=== PATIENT | male | born 1955 | race Caucasian/White ===

== ENCOUNTER 2016-11-18 10:17 | Inpatient (IN) | payer OTHER, MEDICAID ==
[~2016-11-18] VITALS: Ht 167.6 cm; Wt 65.2 kg
[~2016-11-18 10:17] MED LIST: ASPI325T32 PO; ATOR20TA38 PO; OMEP20CA16 PO
[2016-11-18] MEDS ORDERED: morphine 4 MG/ML VIAL IV STA (12:32)
[2016-11-18] MEDS ORDERED: BELLADONNA/PHENOBARBITAL TAB PO STA (12:32)
[2016-11-18] MEDS ORDERED: SOD CHLORIDE 0.9% 1,000 ML IV STA (12:32)
[2016-11-18] MEDS ORDERED: ONDANSETRON 4 MG INJ IV STA (12:32)
[2016-11-18] MEDS ORDERED: LIDOCAINE/MYLANTA 40 ML BTL PO STA (12:32)
[2016-11-18 12:48] LABS: ADD SCAN DIFF NO
[2016-11-18 12:54] LABS: BASOPHILS % 0.2 % (0.0-2.0); EOSINOPHILS % 0.1 % (0.0-7.0); HEMOGLOBIN 16.2 g/dl (14.0-18.0); LYMPHOCYTES # 1.1 10^3/ul (0.8-2.9); LYMPHOCYTES % 6.7 % (15.0-51.0); MEAN CORPUSCULAR HEMOGLOBIN 31.1 pg (29.0-33.0); MEAN CORPUSCULAR HGB CONC 35.2 g/dl (32.0-37.0); MEAN CORPUSCULAR VOLUME 88.3 fl (82.0-101.0); MEAN PLATELET VOLUME 9.8 fl (7.4-10.4); MONOCYTE # 0.7 10^3/ul (0.3-0.9); MONOCYTES % 4.1 % (0.0-11.0); NEUTROPHIL # 14.8 10^3/ul (1.6-7.5); NEUTROPHILS % 88.5 % (39.0-77.0); PLATELET COUNT 282 10^3/UL (140-415); RED BLOOD COUNT 5.21 10^6/ul (4.70-6.10); RED CELL DISTRIBUTION WIDTH 11.4 % (11.5-14.5); WHITE BLOOD COUNT 16.8 10^3/ul (4.8-10.8)
[2016-11-18] MEDS ORDERED: DICY10CA60 PO (12:59)
[2016-11-18] MEDS ORDERED: TRAM-40 PO (13:00)
[2016-11-18 13:13] LABS: ALBUMIN 4.2 g/dl (3.3-4.9); CHLORIDE 98 mmol/L (97-110)
[2016-11-18 13:14] LABS: POTASSIUM 3.9 mmol/L (3.5-5.1); SODIUM 139 mmol/L (135-144)
[2016-11-18 13:16] LABS: ALBUMIN/GLOBULIN RATIO 1.35; ALKALINE PHOSPHATASE 150 IU/L (42-121); ANION GAP 16 (8-16); ASPARTATE AMINO TRANSFERASE 181 IU/L (15-46); BILIRUBIN,INDIRECT 0.6 mg/dl (0-1.1); BILIRUBIN,TOTAL 0.6 mg/dl (0.2-1.3); BLOOD UREA NITROGEN 11 mg/dl (7-20); CARBON DIOXIDE 29 mmol/L (21-31); CREATININE 0.68 mg/dl (0.61-1.24); TOTAL PROTEIN 7.3 g/dl (6.1-8.1)
[2016-11-18 13:17] LABS: ALANINE AMINOTRANSFERASE 231 IU/L (13-69); CALCIUM 9.5 mg/dl (8.4-10.2); GLUCOSE 117 mg/dl (70-220)
--- NOTE | 2016-11-18 14:37 | ERA ---
ER Documentation Chief Complaint Date/Time DATE: 11/18/16 TIME: 14:35 Chief Complaint ABDOMINAL PAIN SINCE LAST NIGHT. NO N/V. NO DIARRHEA. HPI 61-year-old man complaining of 1 day of crampy epigastric and upper abdominal pain. He has had similar episodes in the past and has been using omeprazole and dicyclomine as prescribed without relief. He has had upper endoscopy in the past and was diagnosed with gastritis and hiatal hernia. He denies fevers or chills, no vomiting or diarrhea, no headache or blurry vision, no chest pain or shortness of breath. Patient denies melena or blood per rectum, denies weight loss ROS All systems reviewed and are negative except as per history of present illness. Medications Home Meds Reported Medications Tramadol Hcl* (Ultram*) 50 Mg Tablet, 50 MG PO BID Y for PAIN, TAB 11/18/16 Dicyclomine Hcl* (Bentyl*) 10 Mg Capsule, 10 MG PO BID, CAP 11/18/16 Omeprazole* (Omeprazole*) 20 Mg Capsule.dr, 20 MG PO DAILY 03/10/13 Atorvastatin Calcium* (Atorvastatin Calcium*) 20 Mg Tablet, 20 MG PO DAILY 03/10/13 Aspirin (Aspirin) 325 Mg Tablet.dr, 325 MG PO DAILY 03/10/13 Allergies Allergies: Coded Allergies: No Known Drug Allergies (Verified Allergy, Unknown, 11/18/16) PMhx/Soc Gastritis, obesity, hiatal hernia, dyslipidemia History of Surgery: No Anesthesia Reaction: No Hx Neurological Disorder: No Hx Respiratory Disorders: No Hx Cardiac Disorders: Yes Hx Psychiatric Problems: No Hx Miscellaneous Medical Probl: Yes (gastritis) Hx Alcohol Use: No Hx Substance Use: No Hx Tobacco Use: No Smoking Status: Former smoker FmHx Family History: No diabetes Physical Exam Vitals Vital Signs Date Time Temp Pulse Resp B/P Pulse Ox O2 Delivery O2 Flow Rate FiO2 11/18/16 18:12 63 22 146/87 97 Room Air 11/18/16 14:38 67 18 146/84 97 Room Air 11/18/16 10:19 98.5 62 21 180/81 98 Physical Exam GENERAL: Well-developed, well-nourished, well-hydrated, in no apparent distress , looks nontoxic in appearance HEENT: Moist mucous membranes, pink conjunctiva, no cervical spine tenderness or step-off deformities, no goiter, no jaundice or icterus, extraocular movements intact without pain. No submandibular induration, and no pharyngeal erythema NEURO: Alert and oriented 3, cranial nerves II through XII intact bilaterally, pupils equal round reactive to light, no focal deficits or facial asymmetry, sensation intact distally Strength 5/5 in upper and lower extremities bilaterally CARDIAC: Regular rate and rhythm, no murmurs rubs or gallops LUNGS: Clear bilaterally no wheezing crackles or stridor ABDOMEN: Soft, mild epigastric tenderness, positive voluntary guarding over the epigastrium, no rigidity, no rebound, no psoas sign no obturator sign. Normoactive bowel sounds SKIN: Warm and dry to touch, no abrasions, contusions, or hematomas, no lacerations, no ecchymosis, no target lesions, and without ulcers EXTREMITIES: No clubbing cyanosis or edema, calves are bilaterally symmetrical, no Homans sign, no popliteal cord sign. Distal pulses equal and bilateral PSYCH: Normal affect without agitation or irritability Result Diagram: 11/18/16 1240 11/18/16 1240 Results 24 hrs Laboratory Tests Test 11/18/16 12:40 Alanine Aminotransferase (ALT/SGPT) 231IU/L Albumin 4.2g/dl Albumin/Globulin Ratio 1.35 Alkaline Phosphatase 150IU/L Anion Gap 16 Aspartate Amino Transf (AST/SGOT) 181IU/L Basophils # 0.010^3/ul Basophils % 0.2% Blood Urea Nitrogen 11mg/dl Calcium Level 9.5mg/dl Carbon Dioxide Level 29mmol/L Chloride Level 98mmol/L Creatinine 0.68mg/dl Direct Bilirubin 0.00mg/dl Eosinophils # 0.010^3/ul Eosinophils % 0.1% Globulin 3.10g/dl Glucose Level 117mg/dl Hematocrit 46.0% Hemoglobin 16.2g/dl Indirect Bilirubin 0.6mg/dl Lipase 39839P/L Lymphocytes # 1.110^3/ul Lymphocytes % 6.7% Mean Corpuscular Hemoglobin 31.1pg Mean Corpuscular Hemoglobin Concent 35.2g/dl Mean Corpuscular Volume 88.3fl Mean Platelet Volume 9.8fl Monocytes # 0.710^3/ul Monocytes % 4.1% Neutrophils # 14.810^3/ul Neutrophils % 88.5% Nucleated Red Blood Cells # 0.010^3/ul Nucleated Red Blood Cells % 0.0/100WBC Platelet Count 76214^3/UL Potassium Level 3.9mmol/L Red Blood Count 5.2110^6/ul Red Cell Distribution Width 11.4% Sodium Level 139mmol/L Total Bilirubin 0.6mg/dl Total Protein 7.3g/dl Troponin I < 0.010ng/ml White Blood Count 16.810^3/ul Current Medications Medications (Trade) Dose Ordered Sig/[place] Route PRN Reason Start Time Stop Time Status Last Admin Dose Admin Sodium Chloride (NS) 1,000 ml @ 1,000 mls/hr Q1H STAT IV 11/18/16 12:32 11/18/16 13:31 DC 11/18/16 12:45 Morphine Sulfate (morphine) 4 mg ONCE STAT IV 11/18/16 12:32 11/18/16 12:33 DC 11/18/16 12:45 Ondansetron HCl (Zofran Inj) 4 mg ONCE STAT IV 11/18/16 12:32 11/18/16 12:33 DC 11/18/16 12:44 Miscellaneous Medication (Gi Cocktail (2)) 40 ml ONCE STAT PO 11/18/16 12:32 11/18/16 12:33 DC 11/18/16 12:44 Belladonna/ Phenobarbital () 2 tab ONCE STAT PO 11/18/16 12:32 11/18/16 12:33 DC 11/18/16 12:45 Ketorolac Tromethamine 15 mg 15 mg ONCE STAT IV 11/18/16 15:04 11/18/16 15:16 DC 11/18/16 15:19 Sodium Chloride (NS) 1,000 ml @ 1,000 mls/hr Q1H ONCE IV 11/18/16 17:00 11/18/16 17:59 DC 11/18/16 17:00 Hydromorphone HCl 1 mg 1 mg ONCE STAT IV 11/18/16 16:49 11/18/16 16:50 DC 11/18/16 16:59 Piperacillin Sod/ Tazobactam Sod 100 ml @ 200 mls/hr ONCE ONCE IVPB 11/18/16 17:00 11/18/16 17:29 DC 11/18/16 17:19 Dextrose/Sodium Chloride (D5-1/2ns) 1,000 ml @ 80 mls/hr [id number] IV 11/18/16 17:39 IV Flush (NS 3 ml) 3 ml PER PROTOCOL IV 11/18/16 18:00 Ondansetron HCl (Zofran Inj) 4 mg Q6H PRN IV NAUSEA AND/OR VOMITING 11/18/16 18:00 Acetaminophen (Tylenol Tab) 650 mg Q6H PRN PO PAIN LEVEL 1-3 OR FEVER 11/18/16 18:00 Acetaminophen (Tylenol Supp) 650 mg Q6H PRN [place] PAIN LEVEL 1-3 OR FEVER 11/18/16 18:00 Morphine Sulfate (morphine) 2 mg Q4H PRN IV SEVERE PAIN LEVEL 7-10 11/18/16 18:00 Docusate Sodium (Colace) 100 mg Q12H PRN PO CONSTIPATION 11/18/16 18:00 Magnesium Hydroxide (Milk Of Mag) 30 ml DAILY PRN PO CONSTIPATION 11/18/16 18:00 Pantoprazole 40 mg 40 mg DAILY@06 IV 11/19/16 06:00 Ceftriaxone Sodium (Rocephin) 50 ml @ 100 mls/hr Q24H IVPB 11/18/16 18:30 Procedures/MDM IV line was established patient was placed on automatic pinsetter mechanic rhythm strip revealed a sinus rhythm at about 60 bpm with upright P and T waves. EKG performed, read by me: 64 bpm, normal sinus rhythm, normal axis, no acute ST segment changes, narrow QRS complex, with good R-wave progression in precordial leads. CT scan of the abdomen and pelvis was performed revealing inflammatory changes around the pancreas. Please refer to radiologist dictation for full report. CBC reveals a leukocytosis of 17, electrolytes were unremarkable, liver function tests revealed transaminitis and a lipase of over 20,000. Troponin was negative. I administered 2 L normal saline intravenously, morphine 4 mg IV, Zofran 4 mg IV , GI cocktail 50 cc p.o., Toradol 15 mg IV, later hydromorphone 1 mg IV for continued epigastric pain. I also administered Zosyn 3.375 g IV empirically. Repeat abdominal examination was performed by me after medications were administered and after admission. Belly remains generally soft although he does has continued voluntary guarding over the epigastrium without rigidity or rebound. No signs of acute peritonitis. I spoke to his miner operator Dr. Hurley regarding the patient's presentation and symptomatology, and he recommended emergent MRCP which I ordered. He agreed to consult the patient emergently. I also spoke to his PMD Dr. Chan for admission. Departure Diagnosis: Primary Impression: Abdominal pain Qualified Code: R10.13 - Epigastric pain Additional Impression: Gallstone pancreatitis Condition: JUANJO Kidd MD Nov 18, 2016 14:37
[2016-11-18] MEDS ORDERED: KETOROLAC 15 MG INJ IV STA (15:04)
--- NOTE | 2016-11-18 15:09 | RADRPT ---
PROCEDURE: CT Abdomen and Pelvis without contrast. CLINICAL INDICATION: Abdominal pain TECHNIQUE: CT scan of the abdomen and pelvis without contrast was performed on a multidetector hig h-resolution CT scanner. The patient was scanned without intravenous contrast. Coronal and sagittal reformatted images were obtained from the axial source images. Images were reviewed on a high-resol [employer] PACS workstation. The total exam CTDI equals 6.59 mGy and the total exam DLP equals 379.66 mGy -cm. One or more of the following dose reduction techniques were used: Automated exposure control. Adjustment of the mA and/or kV according to patient size. Use of iterative reconstruction technique. COMPARISON: None FINDINGS: CT abdomen: The lung bases are remarkable for tubular bronchiectasis in the right lower lobe with mucous pluggin g and bronchial wall thickening. There is significant air trapping in the right lower lobe.. The h eart size is normal, without pericardial thickening or effusion. There is fatty infiltration of the liver. The spleen is normal in size and homogeneous in density. The stomach is partially collapse d, but is grossly unremarkable. There are mild peripancreatic fatty stranding. Trace fluid is seen along the left pararenal fascia. Mild inflammatory changes are also seen around the distal duodenum. The gallbladder and biliary tree are unremarkable and there is no evidence for biliary dilatation. The adrenal glands are symmetric and normal. The kidneys are symmetrically unremarkable as well. No renal calculus or obstructive uropathy or mass lesion is seen. The aorta is of normal caliber. There is no retroperitoneal lymphadenopathy. The kenyon hepatis toya on is clear. The bowel and mesentery, as visualized, are equally unremarkable. There is a moderate hiatal hernia. CT pelvis: The small bowel loops situated within the pelvis are unremarkable. The pelvic organs are normal. T he pelvic sidewalls and inguinal regions are clear. The sigmoid colon and rectum are unremarkable. No mass, lymphadenopathy, or free fluid is seen. No acute inflammation is seen. The surrounding o sseous structures are remarkable for mild degenerative spondylosis of the spine. No osteolytic or o steoblastic lesion is detected. IMPRESSION: 1. Mild inflammatory changes around the pancreas and the distal duodenum suggestive of acute pancre atitis, and possibly duodenitis. No peripancreatic organized fluid collection. 2. Fatty liver. 3. Moderate hiatal hernia. 4. Tubular bronchiectasis with bronchial wall thickening and mucus plugging in the right lower lobe . RPTAT: BB .Dang Noel MD, MD Date Time Electronically viewed and signed by .Dang oNel MD, MD on 11/18/2016 15:09 .O/
[2016-11-18 15:18] LABS: TROPONIN-I < 0.010 ng/ml (0.00-0.12)
[2016-11-18] MEDS ORDERED: HYDROmorphONE 1 MG/ML SYG IV STA (16:49)
[2016-11-18] MEDS ORDERED: PIPER-TAZO 3.375 GM IV (PMX) 100 ML IVPB ONE (17:00)
[2016-11-18] MEDS ORDERED: SOD CHLORIDE 0.9% 1,000 ML IV ONE (17:00)
[2016-11-18] MEDS ORDERED: ONDANSETRON 4 MG INJ IV PRN (18:00)
[2016-11-18] MEDS ORDERED: MAGNESIUM HYDROXIDE 30ML CUP PO PRN (18:00)
[2016-11-18] MEDS ORDERED: NACL 0.9% 3 ML SYG IV SCH (18:00)
[2016-11-18] MEDS ORDERED: DOCUSATE SODIUM 100 MG CAP PO PRN (18:00)
[2016-11-18] MEDS ORDERED: ACETAMINOPHEN 650 MG SUPP PR PRN (18:00)
[2016-11-18] MEDS ORDERED: morphine 2 MG INJ IV PRN (18:00)
--- NOTE | 2016-11-18 18:01 | RADRPT ---
PROCEDURE: US Abdomen (right upper quadrant). CLINICAL INDICATION: Right upper quadrant abdomen pain. TECHNIQUE: Multiple real-time longitudinal and transverse images of the right upper quadrant of th e abdomen were acquired utilizing a curved array transducer. Images were reviewed on a high-resoluti on PACS workstation. COMPARISON: None FINDINGS: The liver is normal in size and echogenicity. There is no focal hepatic lesion. Gallstones are present in the gallbladder neck. There is no gallbladder wall thickening or fluid ar ound the gallbladder. The bile ducts are normal with the common bile duct measuring 4.3 mm in diameter. The pancreas is not visualized due to overlying bowel gas. No free fluid is present. The right kidney measures 10.6 cm. There is normal echogenicity of the right kidney. There is no perinephric fluid collection. No hydronephrosis, mass, or calculus is seen. IMPRESSION: 1. Gallstones in the gallbladder. No evidence of cholecystitis. 2. Pancreas not visualized. 3. Otherwise unremarkable study. RPTAT: QQ .Driss Dumont MD, MD Date Time Electronically viewed and signed by .Driss Dumont MD, on 11/18/2016 18:01 .R/
[2016-11-18 20:20] VITALS: BP 141/76; PULSE 71; RESP 18; Ht 167.6 cm; Wt 65.2 kg
[2016-11-18] MEDS: DEXTROSE 5%-0.45% NACL 1,000 ML IV SCH (22:21)
[2016-11-18] MEDS: CEFTRIAXONE 1 GM/50 ML (PMX) 50 ML IVPB SCH (22:22)
--- NOTE | 2016-11-18 23:25 | QN ---
Documentation Comment [id number] KIMMIE VIZCAINO MD Nov 18, 2016 23:25
--- NOTE | 2016-11-19 00:11 | HP ---
DATE OF ADMISSION: 11/18/2016 HISTORY OF PRESENT ILLNESS: The patient presented to the ER complaining of abdominal pain. Previously patient has a history of hyperlipidemia, GERD. The patient now presents with abdominal pain. The patient was seen in the ER. Family is at bedside. The patient had laboratory data done, showed WBC 16.8, hematocrit 46, platelet count of 282. AST 181, ALT 231, alkaline phosphatase 150, lipase The patient had abdominopelvic CT scan done, shows mild inflammatory changes, moderate hiatus hernia, bronchiectasis with bronchial wall thickening and mucus plugging in the right lower lobe. The patient had gallbladder ultrasound, shows gallstone in the gallbladder, pancreas not visualized. The patient will be undergoing MRCP. PAST MEDICAL HISTORY: Positive for dyslipidemia. ALLERGY HISTORY: NEGATIVE. FAMILY HISTORY: Negative. SOCIAL HISTORY: Negative. MEDICATION HISTORY: The patient is on: 1. Aspirin. 2. Lipitor. 3. Bentyl. 4. Omeprazole. 5. Tramadol. REVIEW OF SYSTEMS: HEENT: Unremarkable. RESPIRATORY: Unremarkable. CARDIOVASCULAR: Unremarkable. ABDOMEN: Complaining of nausea and vomiting, abdominal pain. EXTREMITIES: Unremarkable. CENTRAL NERVOUS SYSTEM: Unremarkable. PHYSICAL EXAMINATION: GENERAL: Obese, overweight male, awake, alert. VITAL SIGNS: Pulse , blood pressure 146/57. HEENT: Head is atraumatic, normocephalic. Pupils equal, reactive to light. NECK: Supple. No JVD. LUNGS: Clear. CARDIOVASCULAR: S1, S2 normal. ABDOMEN: Obese. Bowel sounds present. Mild tenderness noted. EXTREMITIES: There is no cyanosis, clubbing, edema. CENTRAL NERVOUS SYSTEM: The patient is awake, alert. No focal deficit. LABORATORY DATA: As mentioned above. IMPRESSION: 1. Gallstone pancreatitis. 2. Leukocytosis. 3. History of dyslipidemia. PLAN: Keep him n.p.o., IV fluid, antibiotic, pain medication, GI consultation. Orders were done. Dictated By: KIMMIE GONZALEZ/CATRINA Conf#: [id number] DID#: [id number] MTDD
[2016-11-19] MEDS: DEXTROSE 5%-0.45% NACL 1,000 ML IV SCH ×6 (06:09→22:00)
[2016-11-19] MEDS: PANTOPRAZOLE 40 MG INJ IV SCH (06:21)
[2016-11-19 07:30] VITALS: BP 147/74; RESP 18
--- NOTE | 2016-11-19 08:24 | RADRPT ---
PROCEDURE: XR orbits. CLINICAL INDICATION: Oral pain. History of metallic orbital foreign body. TECHNIQUE: 4 views. Frontal, Cheney, right lateral, left lateral. COMPARISON: No prior studies available for comparison. FINDINGS: There is no fracture. There is no lytic or blastic lesion. The visualized orbits are normal. Ther e is no radiopaque foreign body. IMPRESSION: 1. Normal images of the orbits. 2. No radiopaque foreign body. RPTAT: QQ .Driss Dumont MD, MD Date Time Electronically viewed and signed by .Driss Dumont MD, MD on 11/19/2016 08:23 .R/
--- NOTE | 2016-11-19 09:56 | RADRPT ---
PROCEDURE: MRCP. CLINICAL INDICATION: Abdominal pain. Pancreatitis. TECHNIQUE: MRCP was performed on the a high-resolution, high Tere field strength scanner. Patien t was examined without contrast. 3-D coronal rotating MIP images of the biliary tree are available for review. COMPARISON: CT abdomen and pelvis 11/18/2016 FINDINGS: Multiple tiny gallstones are seen layering in the gallbladder. There is mild diffuse gallbladder wa ll thickening with no significant gallbladder distension or pericholecystic inflammatory changes. Th e biliary tree is not dilated. No intrahepatic nor extrahepatic biliary dilatation is present. No f illing defect or choledocholithiasis is seen. There is no stricture or obstruction. The pancreatic d uct, as visualized, is equally unremarkable. There is fatty liver. Mild inflammatory changes are ag ain seen around the pancreas with no organized peripancreatic fluid collection. Sub centimeter corti jayla cysts are seen in the bilateral kidneys. IMPRESSION: 1. Multiple tiny gallstones layering in the gallbladder. No distension of the gallbladder with mil d diffuse wall thickening which could be reactive. No significant pericholecystic inflammatory escamilla ges. 2. No biliary ductal dilatation. No choledocholithiasis. 3. Mild inflammatory changes around the pancreas without organized fluid collection. 4. Moderate hiatal hernia. 5. Fatty liver. RPTAT: BB .Dang Noel MD, Date Time Electronically viewed and signed by .Dang Noel MD, on 11/19/2016 09:56 .O/
--- NOTE | 2016-11-19 11:24 | CONS ---
DATE OF ADMISSION: 11/18/2016 DATE OF CONSULTATION: TYPE OF CONSULTATION: Gastroenterology HISTORY OF PRESENT ILLNESS: The patient is a 61-year-old male who came to the emergency room compla ining of epigastric pain. The pain was radiating to the back. 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 The patient's lipase was 20,000 in the ER and LFTs were abnormal. Sonogram showed gallstones but no dilatation of the biliary system. CAT scan also confirms pancreatitis; however, he had some mucus plugging and bronchiectasis of the right lobe. PAST MEDICAL HISTORY: Positive for dyslipidemia. ALLERGIES: Negative. FAMILY HISTORY: Negative. SOCIAL HISTORY: Negative. MEDICATIONS: He is on: 1. Aspirin. 2. Lipitor. 3. . 4. Omeprazole. 5. Tramadol. REVIEW OF SYSTEMS: Negative. PHYSICAL EXAMINATION GENERAL: Well-built, nourished, not in distress. VITAL SIGNS: Stable. CARDIOVASCULAR: No murmur, gallop or click. LUNGS: Clear. ABDOMEN: Benign. EXTREMITIES: No edema. CENTRAL NERVOUS SYSTEM: Grossly within normal limits. LABORATORY DATA: SGOT and SGPT 181/231, alkaline phosphatase is 250, lipase was 20,000. WBC 16,000 . MRCP showed multiple bile duct stones but no dilatation of the biliary system. There was mild in flammation of the pancreas. IMPRESSION: 1. Biliary pancreatitis. 2. Lipid abnormality. 2. Mild leukocytosis. PLAN: At this point, is to continue antibiotic. Will get a surgical consult, monitor amylase, lipa se closely n.p.o., IV fluids, pain management and also I will send for a lipid study. Dictated By: FRANSISCA HERNANDEZ MD PJ/NTS Conf#: [id number] DID#: [id number] CC: KIMMIE VIZCAINO MD;*EndCC*
[2016-11-19 14:09] LABS: ADD SCAN DIFF NO
[2016-11-19 14:11] LABS: BASOPHILS % 0.1 % (0.0-2.0); EOSINOPHILS % 0.2 % (0.0-7.0); HEMATOCRIT 42.7 % (42.0-52.0); HEMOGLOBIN 14.6 g/dl (14.0-18.0); LYMPHOCYTES # 1.2 10^3/ul (0.8-2.9); MEAN CORPUSCULAR HEMOGLOBIN 30.9 pg (29.0-33.0); MEAN CORPUSCULAR HGB CONC 34.2 g/dl (32.0-37.0); MEAN CORPUSCULAR VOLUME 90.5 fl (82.0-101.0); MEAN PLATELET VOLUME 10.1 fl (7.4-10.4); MONOCYTE # 0.7 10^3/ul (0.3-0.9); MONOCYTES % 5.3 % (0.0-11.0); NEUTROPHIL # 11.7 10^3/ul (1.6-7.5); PLATELET COUNT 239 10^3/UL (140-415); RED BLOOD COUNT 4.72 10^6/ul (4.70-6.10); RED CELL DISTRIBUTION WIDTH 11.7 % (11.5-14.5); WHITE BLOOD COUNT 13.8 10^3/ul (4.8-10.8)
[2016-11-19 14:23] LABS: ALBUMIN 3.6 g/dl (3.3-4.9)
[2016-11-19 14:24] LABS: POTASSIUM 3.7 mmol/L (3.5-5.1)
[2016-11-19 14:26] LABS: ALBUMIN/GLOBULIN RATIO 0.9; BILIRUBIN,INDIRECT 0.4 mg/dl (0-1.1); BILIRUBIN,TOTAL 0.4 mg/dl (0.2-1.3); CREATININE 0.67 mg/dl (0.61-1.24); TOTAL PROTEIN 7.6 g/dl (6.1-8.1)
[2016-11-19 14:27] LABS: CALCIUM 9.2 mg/dl (8.4-10.2); CHOL/HDL RATIO 3.2 RATIO
[2016-11-19] MEDS: CEFTRIAXONE 1 GM/50 ML (PMX) 50 ML IVPB SCH (19:46)
[2016-11-19 19:52] VITALS: BP 111/58; RESP 16
--- NOTE | 2016-11-19 22:41 | PN ---
Date/Time of Note Date/Time of Note DATE: 11/19/16 TIME: 22:40 Assessment/Plan VTE Prophylaxis VTE Prophylaxis Intervention: other Lines/Catheters IV Catheter Type (from Nrs): Peripheral IV Assessment/Plan Chief Complaint/Hosp Course IMPRESSION: 1. Gallstone pancreatitis. 2. Leukocytosis. 3. History of dyslipidemia. 4 abn lft [address] morris called antibiotic Problems: Subjective 24 Hr Interval Summary Cardiovascular: no complaints Gastrointestinal: No diarrhea, No pain, No vomiting Exam/Review of Systems Vital Signs Vitals Vital Signs Date Time Temp Pulse Resp B/P Pulse Ox O2 Delivery O2 Flow Rate FiO2 11/19/16 19:52 97.5 75 16 111/58 95 11/19/16 07:30 Room Air Intake and Output 11/18/16 11/18/16 11/19/16 14:59 22:59 06:59 Intake Total 1250 ml Balance 1250 ml Exam Neck: supple Respiratory: clear to auscultation Cardiovascular: regular rate and rhythm Gastrointestinal: soft Musculoskeletal: nl extremities to inspection Extremities: normal pulses Results Result Diagram: 11/19/16 1400 11/19/16 1400 Results 24 hrs Laboratory Tests Test 11/19/16 14:00 Alanine Aminotransferase (ALT/SGPT) 181 H Albumin 3.6 Albumin/Globulin Ratio 0.90 Alkaline Phosphatase 126 H Amylase Level 917 H Anion Gap 13 Aspartate Amino Transf (AST/SGOT) 79 #H Basophils # 0.0 Basophils % 0.1 Blood Urea Nitrogen 7 Calcium Level 9.2 Carbon Dioxide Level 29 Chloride Level 102 Cholesterol Level 180 Cholesterol/HDL Ratio 3.2 Creatinine 0.67 Direct Bilirubin 0.00 Eosinophils # 0.0 Eosinophils % 0.2 Globulin 4.00 H Glucose Level 120 HDL Cholesterol 55 Hematocrit 42.7 Hemoglobin 14.6 Indirect Bilirubin 0.4 LDL Cholesterol, Calculated 108 Lipase 1818 H Lymphocytes # 1.2 Lymphocytes % 9.0 L Mean Corpuscular Hemoglobin 30.9 Mean Corpuscular Hemoglobin Concent 34.2 Mean Corpuscular Volume 90.5 Mean Platelet Volume 10.1 Monocytes # 0.7 Monocytes % 5.3 Neutrophils # 11.7 H Neutrophils % 85.0 H Nucleated Red Blood Cells # 0.0 Nucleated Red Blood Cells % 0.0 Platelet Count 239 Potassium Level 3.7 Red Blood Count 4.72 Red Cell Distribution Width 11.7 Sodium Level 140 Total Bilirubin 0.4 Total Protein 7.6 Triglycerides Level 87 White Blood Count 13.8 H Medications Medications Current Medications Dextrose/Sodium Chloride (D5-1/2ns) 1,000 ml @ 125 mls/hr Q8H IV Last administered on 11/19/16 21:28; Admin Dose 125 MLS/HR; Start 11/18/16 at 17:39 Ondansetron HCl (Zofran Inj) 4 mg Q6H PRN IV NAUSEA AND/OR VOMITING; Start at 18:00 Acetaminophen (Tylenol Tab) 650 mg Q6H PRN PO PAIN LEVEL 1-3 OR FEVER; Start at 18:00 Acetaminophen (Tylenol Supp) 650 mg Q6H PRN [place] PAIN LEVEL 1-3 OR FEVER; Start 11/18/16 at 18:00 Morphine Sulfate (morphine) 2 mg Q4H PRN IV SEVERE PAIN LEVEL 7-10; Start 11/18 at 18:00 Docusate Sodium (Colace) 100 mg Q12H PRN PO CONSTIPATION; Start 11/18/16 at 18: 00 Magnesium Hydroxide (Milk Of Mag) 30 ml DAILY PRN PO CONSTIPATION; Start at 18:00 Pantoprazole 40 mg 40 mg DAILY@06 IV Last administered on 11/19/16 06:21; Admin Dose 40 MG; Start 11/19/16 at 06:00 Ceftriaxone Sodium (Rocephin) 50 ml @ 100 mls/hr Q24H IVPB Last administered on 11/19/16 19:46; Admin Dose 100 MLS/HR; Start 11/18/16 at 18:30 KIMMIE VIZCAINO MD Nov 19, 2016 22:41
--- NOTE | 2016-11-20 01:11 | CONS ---
DATE OF ADMISSION: 11/18/2016 DATE OF CONSULTATION: 11/19/2016 TYPE OF CONSULTATION: Surgical. REFERRING PHYSICIAN: Dr. Denny Chan OTHER PHYSICIANS INVOLVED: Dr. Ra Hurley CHIEF COMPLAINT: 1. Abdominal pain. 2. Gallstones. 3. Pancreatitis. 4. Leukocytosis. 5. Transaminitis. HISTORY OF PRESENT ILLNESS: Mr. Carmelo Lee is a 61-year-old male who presents with epigastr ic abdominal pain for the past 2 days with associated nausea but no vomiting. No fevers or chills. No chest pain or shortness of breath. No radiation of pain. No dysuria. No trauma or sick contac ts. No cough. No seizure. No blood per mouth or rectum. Pain is sharp, not associated with any s pecific factors. In the emergency room, he was found to have leukocytosis with transaminitis and elevated lipase. MR CP is obtained and shows gallstones but no inflammatory changes. The patient was admitted, and surg ical consult is obtained for further evaluation and treatment. PAST MEDICAL HISTORY: 1. Dyslipidemia. 2. Pancreatitis. 3. Transaminitis. 4. Gallstones. 5. Fatty liver. 6. Moderate hiatal hernia. 7. Gastritis. 8. History of metal in eye secondary to grinding metal 30 years ago. PAST SURGICAL HISTORY: Removal of metal from eye 30 years ago. MEDICATIONS: As per MAR. ALLERGIES: NONE. SOCIAL HISTORY: Denies recreational drugs. Social ETOH. Quit 4 cigarettes per day years ago. Mar ried with children. FAMILY HISTORY: Noncontributory. REVIEW OF SYSTEMS: Twelve-point review of systems negative unless addressed in HPI. No weight escamilla ges. PHYSICAL EXAMINATION: VITAL SIGNS: Temperature is 98.2, pulse 70s, blood pressure 147/74, saturating 97% on room air. GENERAL: No acute distress. Comfortable, pleasant. HEENT: Pupils equal, reactive. No scleral icterus. Mucous membranes are moist. NECK: Supple. No JVD. No crepitus. PULMONARY: Normal respiratory effort. No wheezing. CARDIAC: S1, S2 present. ABDOMEN: Soft, minimally tender in epigastric region. No rebound, no guarding, not rigid. EXTREMITIES: No edema. VASCULAR: Capillary refill is less than 2 seconds. NEUROLOGIC: Alert, oriented, moves all 4 extremities grossly. LABORATORY AND RADIOGRAPHIC: As per chart and HPI. ASSESSMENT AND PLAN: Ms. Carmelo Lee is a 61-year-old male. 1. Abdominal pain secondary to pancreatitis secondary to gallstones. Continue judicious fluid judit gement and supportive care. Will await resolution and improvement in pancreatitis. Recommended stephanie gical removal of gallbladder when pancreatitis has resolved. The patient and family are in agreemen t. 2. Leukocytosis secondary to systemic inflammatory response syndrome. Continue close monitoring. The patient is already on antibiotics. 3. Transaminitis. Possibly secondary to passed stone. Continue close monitoring and treatment as above. May benefit from intraoperative cholangiogram. 4. Dyslipidemia. Recommend medical optimization and nutrition optimization. 5. History of gastritis. Continue PPI and encourage nutrition and lifestyle optimization. 6. Small hiatal hernia. Will monitor. 7. Fatty liver. Encouraged diet optimization. Consider liver biopsy if proceeds with cholecystect domi. Thank you very much for consulting me in this patient's care. Dictated By: GGAAN FARRIS/CATRINA Conf#: [id number] DID#: [id number]
[2016-11-20 05:42] LABS: ADD SCAN DIFF NO
[2016-11-20] MEDS: PANTOPRAZOLE 40 MG INJ IV SCH (05:46)
[2016-11-20] MEDS: DEXTROSE 5%-0.45% NACL 1,000 ML IV SCH ×5 (05:46→23:08)
[2016-11-20 06:00] LABS: BASOPHILS % 0.2 % (0.0-2.0); EOSINOPHILS # 0.1 10^3/ul (0.0-0.5); HEMATOCRIT 41.1 % (42.0-52.0); HEMOGLOBIN 13.9 g/dl (14.0-18.0); LYMPHOCYTES # 1.3 10^3/ul (0.8-2.9); LYMPHOCYTES % 11.5 % (15.0-51.0); MEAN CORPUSCULAR HGB CONC 33.8 g/dl (32.0-37.0); MEAN CORPUSCULAR VOLUME 91.7 fl (82.0-101.0); MEAN PLATELET VOLUME 10.1 fl (7.4-10.4); MONOCYTES % 8.8 % (0.0-11.0); NEUTROPHILS % 78.1 % (39.0-77.0); PLATELET COUNT 233 10^3/UL (140-415); RED BLOOD COUNT 4.48 10^6/ul (4.70-6.10); RED CELL DISTRIBUTION WIDTH 11.5 % (11.5-14.5); WHITE BLOOD COUNT 11.5 10^3/ul (4.8-10.8)
[2016-11-20 06:02] LABS: ALBUMIN 3.4 g/dl (3.3-4.9); POTASSIUM 3.8 mmol/L (3.5-5.1)
[2016-11-20 06:04] LABS: ALBUMIN/GLOBULIN RATIO 0.94; BILIRUBIN,INDIRECT 0.4 mg/dl (0-1.1); BILIRUBIN,TOTAL 0.4 mg/dl (0.2-1.3); CREATININE 0.84 mg/dl (0.61-1.24)
[2016-11-20 06:05] LABS: CALCIUM 9.1 mg/dl (8.4-10.2)
[2016-11-20 07:31] VITALS: BP 99/57; RESP 18
[2016-11-20 07:39] VITALS: BP 114/66; RESP 18
--- NOTE | 2016-11-20 17:50 | CONS ---
Date/Time of Note Date/Time of Note DATE: 11/20/16 TIME: 17:48 Assessment/Plan Assessment/Plan Additional Assessment/Plan IMPRESSION: 1. Biliary pancreatitis. 2. Lipid abnormality. 2. Mild leukocytosis. 4.gallstone 5.fatty liver Plan surgery tomorrow,discussed with Dr Blanc continue present care Consultation Date/Type/Reason Admit Date/Time Nov 18, 2016 at 17:27 Initial Consult Date 24 HR Interval Summary Free Text/Dictation no abdominal pain Constitutional: improved, no complaints Exam/Review of Systems Vital Signs Vitals Vital Signs Date Time Temp Pulse Resp B/P Pulse Ox O2 Delivery O2 Flow Rate FiO2 11/20/16 07:39 97.7 71 18 114/66 97 11/19/16 07:30 Room Air Intake and Output 11/19/16 11/19/16 11/20/16 15:00 23:00 07:00 Intake Total 600 ml 1050 ml 1000 ml Balance 600 ml 1050 ml 1000 ml Exam Constitutional: alert, oriented, well developed Psych: nl mood/affect, no complaints Head: atraumatic, normocephalic Eyes: EOMI, PERRL, nl conjunctiva, nl lids, nl sclera ENMT: nl external ears & nose, nl lips & teeth, nl nasal mucosa & septum Neck: non-tender, supple Respiratory: clear to auscultation, normal air movement Cardiovascular: nl pulses, regular rate and rhythm Gastrointestinal: nl liver, spleen, non-tender, soft Musculoskeletal: nl extremities to inspection, nl gait and stance Extremities: normal pulses Neurological: MOBILE ENGINEER II-XII intact, nl mental status, nl speech, nl strength Skin: nl turgor, No rash or lesions Lymph: nl lymph nodes Results Result Diagram: 11/20/16 0510 11/20/16 0510 Results 24 hrs Laboratory Tests Test 11/20/16 05:10 Alanine Aminotransferase (ALT/SGPT) 155 H Albumin 3.4 Albumin/Globulin Ratio 0.94 Alkaline Phosphatase 134 H Anion Gap 14 Aspartate Amino Transf (AST/SGOT) 78 H Basophils # 0.0 Basophils % 0.2 Blood Urea Nitrogen 7 Calcium Level 9.1 Carbon Dioxide Level 31 Chloride Level 101 Creatinine 0.84 Direct Bilirubin 0.00 Eosinophils # 0.1 Eosinophils % 1.0 Globulin 3.60 H Glucose Level 115 Hematocrit 41.1 L Hemoglobin 13.9 L Indirect Bilirubin 0.4 Lipase 427 H Lymphocytes # 1.3 Lymphocytes % 11.5 L Mean Corpuscular Hemoglobin 31.0 Mean Corpuscular Hemoglobin Concent 33.8 Mean Corpuscular Volume 91.7 Mean Platelet Volume 10.1 Monocytes # 1.0 H Monocytes % 8.8 Neutrophils # 9.0 H Neutrophils % 78.1 H Nucleated Red Blood Cells # 0.0 Nucleated Red Blood Cells % 0.0 Platelet Count 233 Potassium Level 3.8 Red Blood Count 4.48 L Red Cell Distribution Width 11.5 Sodium Level 142 Total Bilirubin 0.4 Total Protein 7.0 White Blood Count 11.5 H Medications Medications Current Medications Dextrose/Sodium Chloride (D5-1/2ns) 1,000 ml @ 125 mls/hr Q8H IV Last administered on 11/20/16 16:34; Admin Dose 125 MLS/HR; Start 11/18/16 at 17:39 Ondansetron HCl (Zofran Inj) 4 mg Q6H PRN IV NAUSEA AND/OR VOMITING; Start at 18:00 Acetaminophen (Tylenol Tab) 650 mg Q6H PRN PO PAIN LEVEL 1-3 OR FEVER; Start at 18:00 Acetaminophen (Tylenol Supp) 650 mg Q6H PRN [place] PAIN LEVEL 1-3 OR FEVER; Start 11/18/16 at 18:00 Morphine Sulfate (morphine) 2 mg Q4H PRN IV SEVERE PAIN LEVEL 7-10; Start 11/18 at 18:00 Docusate Sodium (Colace) 100 mg Q12H PRN PO CONSTIPATION; Start 11/18/16 at 18: 00 Magnesium Hydroxide (Milk Of Mag) 30 ml DAILY PRN PO CONSTIPATION; Start at 18:00 Pantoprazole 40 mg 40 mg DAILY@06 IV Last administered on 11/20/16 05:46; Admin Dose 40 MG; Start 11/19/16 at 06:00 Ceftriaxone Sodium (Rocephin) 50 ml @ 100 mls/hr Q24H IVPB Last administered on 11/19/16 19:46; Admin Dose 100 MLS/HR; Start 11/18/16 at 18:30 FRANSISCA HERNANDEZ MD Nov 20, 2016 17:50
[2016-11-20] MEDS: CEFTRIAXONE 1 GM/50 ML (PMX) 50 ML IVPB SCH (18:04)
[2016-11-20 19:22] VITALS: BP 121/60; RESP 16
--- NOTE | 2016-11-20 22:54 | PN ---
Date/Time of Note Date/Time of Note DATE: 11/20/16 TIME: 22:52 Assessment/Plan VTE Prophylaxis VTE Prophylaxis Intervention: other Lines/Catheters [facility] Type [facility] Peripheral IV Assessment/Plan Chief Complaint/Hosp Course IMPRESSION: 1. Gallstone pancreatitis. 2. Leukocytosis. 3. History of dyslipidemia. 4 abn lft [address] morris and dr tidwell antibiotic Problems: Subjective 24 Hr Interval Summary Respiratory: no complaints Cardiovascular: no complaints Genitourinary: no complaints Exam/Review of Systems Vital Signs Vitals Vital Signs Date Time Temp Pulse Resp B/P Pulse Ox O2 Delivery O2 Flow Rate FiO2 11/20/16 19:22 99.1 69 16 121/60 96 11/19/16 07:30 Room Air Intake and Output 11/19/16 11/19/16 11/20/16 15:00 23:00 07:00 Intake Total 600 ml 1050 ml 1000 ml Balance 600 ml 1050 ml 1000 ml Exam Respiratory: clear to auscultation Cardiovascular: regular rate and rhythm Gastrointestinal: bowel sounds (+), soft, No tender Results Result Diagram: 11/20/16 0510 11/20/16 0510 Results 24 hrs Laboratory Tests Test 11/20/16 05:10 Alanine Aminotransferase (ALT/SGPT) 155 H Albumin 3.4 Albumin/Globulin Ratio 0.94 Alkaline Phosphatase 134 H Anion Gap 14 Aspartate Amino Transf (AST/SGOT) 78 H Basophils # 0.0 Basophils % 0.2 Blood Urea Nitrogen 7 Calcium Level 9.1 Carbon Dioxide Level 31 Chloride Level 101 Creatinine 0.84 Direct Bilirubin 0.00 Eosinophils # 0.1 Eosinophils % 1.0 Globulin 3.60 H Glucose Level 115 Hematocrit 41.1 L Hemoglobin 13.9 L Indirect Bilirubin 0.4 Lipase 427 H Lymphocytes # 1.3 Lymphocytes % 11.5 L Mean Corpuscular Hemoglobin 31.0 Mean Corpuscular Hemoglobin Concent 33.8 Mean Corpuscular Volume 91.7 Mean Platelet Volume 10.1 Monocytes # 1.0 H Monocytes % 8.8 Neutrophils # 9.0 H Neutrophils % 78.1 H Nucleated Red Blood Cells # 0.0 Nucleated Red Blood Cells % 0.0 Platelet Count 233 Potassium Level 3.8 Red Blood Count 4.48 L Red Cell Distribution Width 11.5 Sodium Level 142 Total Bilirubin 0.4 Total Protein 7.0 White Blood Count 11.5 H Medications Medications Current Medications Dextrose/Sodium Chloride (D5-1/2ns) 1,000 ml @ 125 mls/hr Q8H IV Last administered on 11/20/16 16:34; Admin Dose 125 MLS/HR; Start 11/18/16 at 17:39 Ondansetron HCl (Zofran Inj) 4 mg Q6H PRN IV NAUSEA AND/OR VOMITING; Start at 18:00 Acetaminophen (Tylenol Tab) 650 mg Q6H PRN PO PAIN LEVEL 1-3 OR FEVER; Start at 18:00 Acetaminophen (Tylenol Supp) 650 mg Q6H PRN [place] PAIN LEVEL 1-3 OR FEVER; Start 11/18/16 at 18:00 Morphine Sulfate (morphine) 2 mg Q4H PRN IV SEVERE PAIN LEVEL 7-10; Start 11/18 at 18:00 Docusate Sodium (Colace) 100 mg Q12H PRN PO CONSTIPATION; Start 11/18/16 at 18: 00 Magnesium Hydroxide (Milk Of Mag) 30 ml DAILY PRN PO CONSTIPATION; Start at 18:00 Pantoprazole 40 mg 40 mg DAILY@06 IV Last administered on 11/20/16 05:46; Admin Dose 40 MG; Start 11/19/16 at 06:00 Ceftriaxone Sodium (Rocephin) 50 ml @ 100 mls/hr Q24H IVPB Last administered on 11/20/16 18:04; Admin Dose 100 MLS/HR; Start 11/18/16 at 18:30 KIMMIE VIZCAINO MD Nov 20, 2016 22:54
[2016-11-21] VITALS (12 sets, daily range): BP systolic 104–153; BP diastolic 59–80; PULSE 68–80; RESP 14–20
[2016-11-21] MEDS: DEXTROSE 5%-0.45% NACL 1,000 ML IV SCH ×5 (02:52→20:09)
[2016-11-21 05:31] LABS: ADD SCAN DIFF NO
[2016-11-21 05:34] LABS: BASOPHILS % 0.2 % (0.0-2.0); EOSINOPHILS # 0.2 10^3/ul (0.0-0.5); EOSINOPHILS % 2.2 % (0.0-7.0); HEMATOCRIT 41.2 % (42.0-52.0); HEMOGLOBIN 14.1 g/dl (14.0-18.0); LYMPHOCYTES # 1.3 10^3/ul (0.8-2.9); LYMPHOCYTES % 13.2 % (15.0-51.0); MEAN CORPUSCULAR HEMOGLOBIN 31.1 pg (29.0-33.0); MEAN CORPUSCULAR HGB CONC 34.2 g/dl (32.0-37.0); MEAN CORPUSCULAR VOLUME 90.9 fl (82.0-101.0); MEAN PLATELET VOLUME 10.1 fl (7.4-10.4); MONOCYTES % 9.6 % (0.0-11.0); NEUTROPHIL # 7.5 10^3/ul (1.6-7.5); NEUTROPHILS % 74.4 % (39.0-77.0); PLATELET COUNT 241 10^3/UL (140-415); RED BLOOD COUNT 4.53 10^6/ul (4.70-6.10); RED CELL DISTRIBUTION WIDTH 11.6 % (11.5-14.5)
[2016-11-21 05:46] LABS: ALBUMIN 3.5 g/dl (3.3-4.9)
[2016-11-21 05:47] LABS: POTASSIUM 3.4 mmol/L (3.5-5.1)
[2016-11-21 05:49] LABS: ALBUMIN/GLOBULIN RATIO 0.92; BILIRUBIN,INDIRECT 0.5 mg/dl (0-1.1); BILIRUBIN,TOTAL 0.5 mg/dl (0.2-1.3); CREATININE 0.82 mg/dl (0.61-1.24); TOTAL PROTEIN 7.3 g/dl (6.1-8.1)
[2016-11-21 05:50] LABS: CALCIUM 8.9 mg/dl (8.4-10.2)
[2016-11-21] MEDS: PANTOPRAZOLE 40 MG INJ IV SCH (06:03)
--- NOTE | 2016-11-21 10:41 | CONS ---
Date/Time of Note Date/Time of Note DATE: 11/21/16 TIME: 10:40 Assessment/Plan Assessment/Plan Additional Assessment/Plan Additional Assessment/Plan IMPRESSION: 1. Biliary pancreatitis. 2. Lipid abnormality. 2. Mild leukocytosis. 4.gallstone 5.fatty liver Plan surgery today,discussed with Dr Blanc continue present care monitor liver function Consultation Date/Type/Reason Admit Date/Time Nov 18, 2016 at 17:27 24 HR Interval Summary Constitutional: improved, no complaints Exam/Review of Systems Vital Signs Vitals Vital Signs Date Time Temp Pulse Resp B/P Pulse Ox O2 Delivery O2 Flow Rate FiO2 11/21/16 07:50 98.5 69 18 104/59 96 11/19/16 07:30 Room Air Intake and Output 11/20/16 11/20/16 11/21/16 15:00 23:00 07:00 Intake Total 1050 ml 1250 ml Balance 1050 ml 1250 ml Exam Constitutional: alert, oriented, well developed Psych: nl mood/affect, no complaints Head: atraumatic, normocephalic Eyes: EOMI, PERRL, nl conjunctiva, nl lids, nl sclera ENMT: nl external ears & nose, nl lips & teeth, nl nasal mucosa & septum Neck: non-tender, supple Respiratory: clear to auscultation, normal air movement Cardiovascular: nl pulses, regular rate and rhythm Gastrointestinal: nl liver, spleen, non-tender, soft Musculoskeletal: nl extremities to inspection, nl gait and stance Extremities: normal pulses Neurological: DIRECTOR OF PUBLIC RELATIONS II-XII intact, nl mental status, nl speech, nl strength Skin: nl turgor, No rash or lesions Lymph: nl lymph nodes Results Result Diagram: 11/21/16 0505 11/21/16 0505 Results 24 hrs Laboratory Tests Test 11/21/16 05:05 Alanine Aminotransferase (ALT/SGPT) 148 H Albumin 3.5 Albumin/Globulin Ratio 0.92 Alkaline Phosphatase 176 H Anion Gap 13 Aspartate Amino Transf (AST/SGOT) 66 H Basophils # 0.0 Basophils % 0.2 Blood Urea Nitrogen 7 Calcium Level 8.9 Carbon Dioxide Level 31 Chloride Level 101 Creatinine 0.82 Direct Bilirubin 0.00 Eosinophils # 0.2 Eosinophils % 2.2 Globulin 3.80 H Glucose Level 115 Hematocrit 41.2 L Hemoglobin 14.1 Indirect Bilirubin 0.5 Lipase 270 Lymphocytes # 1.3 Lymphocytes % 13.2 L Mean Corpuscular Hemoglobin 31.1 Mean Corpuscular Hemoglobin Concent 34.2 Mean Corpuscular Volume 90.9 Mean Platelet Volume 10.1 Monocytes # 1.0 H Monocytes % 9.6 Neutrophils # 7.5 Neutrophils % 74.4 Nucleated Red Blood Cells # 0.0 Nucleated Red Blood Cells % 0.0 Platelet Count 241 Potassium Level 3.4 L Red Blood Count 4.53 L Red Cell Distribution Width 11.6 Sodium Level 142 Total Bilirubin 0.5 Total Protein 7.3 White Blood Count 10.0 Medications Medications Current Medications Dextrose/Sodium Chloride (D5-1/2ns) 1,000 ml @ 125 mls/hr Q8H IV Last administered on 11/21/16 09:34; Admin Dose 125 MLS/HR; Start 11/18/16 at 17:39 Ondansetron HCl (Zofran Inj) 4 mg Q6H PRN IV NAUSEA AND/OR VOMITING; Start at 18:00 Acetaminophen (Tylenol Tab) 650 mg Q6H PRN PO PAIN LEVEL 1-3 OR FEVER; Start at 18:00 Acetaminophen (Tylenol Supp) 650 mg Q6H PRN [place] PAIN LEVEL 1-3 OR FEVER; Start 11/18/16 at 18:00 Morphine Sulfate (morphine) 2 mg Q4H PRN IV SEVERE PAIN LEVEL 7-10; Start 11/18 at 18:00 Docusate Sodium (Colace) 100 mg Q12H PRN PO CONSTIPATION; Start 11/18/16 at 18: 00 Magnesium Hydroxide (Milk Of Mag) 30 ml DAILY PRN PO CONSTIPATION; Start at 18:00 Pantoprazole 40 mg 40 mg DAILY@06 IV Last administered on 11/21/16 06:03; Admin Dose 40 MG; Start 11/19/16 at 06:00 Ceftriaxone Sodium (Rocephin) 50 ml @ 100 mls/hr Q24H IVPB Last administered on 11/20/16 18:04; Admin Dose 100 MLS/HR; Start 11/18/16 at 18:30 FRANSISCA HERNANDEZ MD Nov 21, 2016 10:41
--- NOTE | 2016-11-21 16:55 | PN ---
Date/Time of Note Date/Time of Note DATE: 11/21/16 TIME: 16:54 Assessment/Plan VTE Prophylaxis VTE Prophylaxis Intervention: other Lines/Catheters IV Catheter Type (from [facility]): Peripheral IV Assessment/Plan Chief Complaint/Hosp Course IMPRESSION: 1. Gallstone pancreatitis. 2. Leukocytosis. 3. History of dyslipidemia. 4 abn lft [address] morris and dr tidwell antibiotic Problems: Subjective 24 Hr Interval Summary Cardiovascular: no complaints Gastrointestinal: no complaints Genitourinary: no complaints Exam/Review of Systems Vital Signs Vitals Vital Signs Date Time Temp Pulse Resp B/P Pulse Ox O2 Delivery O2 Flow Rate FiO2 11/21/16 07:50 98.5 69 18 104/59 96 11/19/16 07:30 Room Air Intake and Output 11/20/16 11/20/16 11/21/16 15:00 23:00 07:00 Intake Total 1050 ml 1250 ml Balance 1050 ml 1250 ml Exam Neck: supple Respiratory: clear to auscultation Cardiovascular: regular rate and rhythm Gastrointestinal: bowel sounds (+), soft Musculoskeletal: nl extremities to inspection Results Result Diagram: 11/21/16 0505 11/21/16 0505 Results 24 hrs Laboratory Tests Test 11/21/16 05:05 Alanine Aminotransferase (ALT/SGPT) 148 H Albumin 3.5 Albumin/Globulin Ratio 0.92 Alkaline Phosphatase 176 H Anion Gap 13 Aspartate Amino Transf (AST/SGOT) 66 H Basophils # 0.0 Basophils % 0.2 Blood Urea Nitrogen 7 Calcium Level 8.9 Carbon Dioxide Level 31 Chloride Level 101 Creatinine 0.82 Direct Bilirubin 0.00 Eosinophils # 0.2 Eosinophils % 2.2 Globulin 3.80 H Glucose Level 115 Hematocrit 41.2 L Hemoglobin 14.1 Indirect Bilirubin 0.5 Lipase 270 Lymphocytes # 1.3 Lymphocytes % 13.2 L Mean Corpuscular Hemoglobin 31.1 Mean Corpuscular Hemoglobin Concent 34.2 Mean Corpuscular Volume 90.9 Mean Platelet Volume 10.1 Monocytes # 1.0 H Monocytes % 9.6 Neutrophils # 7.5 Neutrophils % 74.4 Nucleated Red Blood Cells # 0.0 Nucleated Red Blood Cells % 0.0 Platelet Count 241 Potassium Level 3.4 L Red Blood Count 4.53 L Red Cell Distribution Width 11.6 Sodium Level 142 Total Bilirubin 0.5 Total Protein 7.3 White Blood Count 10.0 Medications Medications Current Medications Dextrose/Sodium Chloride (D5-1/2ns) 1,000 ml @ 125 mls/hr Q8H IV Last administered on 11/21/16 09:34; Admin Dose 125 MLS/HR; Start 11/18/16 at 17:39 Ondansetron HCl (Zofran Inj) 4 mg Q6H PRN IV NAUSEA AND/OR VOMITING; Start at 18:00 Acetaminophen (Tylenol Tab) 650 mg Q6H PRN PO PAIN LEVEL 1-3 OR FEVER; Start at 18:00 Acetaminophen (Tylenol Supp) 650 mg Q6H PRN [place] PAIN LEVEL 1-3 OR FEVER; Start 11/18/16 at 18:00 Morphine Sulfate (morphine) 2 mg Q4H PRN IV SEVERE PAIN LEVEL 7-10; Start 11/18 at 18:00 Docusate Sodium (Colace) 100 mg Q12H PRN PO CONSTIPATION; Start 11/18/16 at 18: 00 Magnesium Hydroxide (Milk Of Mag) 30 ml DAILY PRN PO CONSTIPATION; Start at 18:00 Pantoprazole 40 mg 40 mg DAILY@06 IV Last administered on 11/21/16 06:03; Admin Dose 40 MG; Start 11/19/16 at 06:00 Ceftriaxone Sodium (Rocephin) 50 ml @ 100 mls/hr Q24H IVPB Last administered on 11/20/16 18:04; Admin Dose 100 MLS/HR; Start 11/18/16 at 18:30 KIMMIE VIZCAINO MD Nov 21, 2016 16:55
[2016-11-21] MEDS ORDERED: LIDOCAINE 1% (MPF) 30 ML INJ ONE (17:03)
[2016-11-21] MEDS ORDERED: BUPIVACAINE 0.25%/EPI (SDV) 30 ML INJ ONE (17:03)
--- NOTE | 2016-11-21 17:04 | PN ---
Date/Time of Note Date/Time of Note DATE: 11/20/16 TIME: 17:02 Assessment/Plan Lines/Catheters IV Catheter Type (from [facility]): Peripheral IV Assessment/Plan Chief Complaint/Hosp Course 1. Abdominal pain secondary to pancreatitis secondary to gallstones. Continue judicious fluid management and supportive care. Will await resolution and improvement in pancreatitis. Recommended surgical removal of gallbladder when pancreatitis has resolved. The patient and family are in agreement. 2. Leukocytosis secondary to systemic inflammatory response syndrome. Continue close monitoring. The patient is already on antibiotics. 3. Transaminitis. Possibly secondary to passed stone. Continue close monitoring and treatment as above. May benefit from intraoperative cholangiogram. 4. Dyslipidemia. Recommend medical optimization and nutrition optimization. 5. History of gastritis. Continue PPI and encourage nutrition and lifestyle optimization. 6. Small hiatal hernia. Will monitor. 7. Fatty liver. Encouraged diet optimization. Consider liver biopsy if proceeds with cholecystectomy. Thank you Late entry 11/20 Problems: Subjective 24 Hr Interval Summary Pain improving. No f/c. No n/v. No cp/sob. No cough. No salmeron/dizzy/visual or neuro changes. No dysuria. Bowel function. Exam/Review of Systems Vital Signs Vitals Vital Signs Date Time Temp Pulse Resp B/P Pulse Ox O2 Delivery O2 Flow Rate FiO2 11/21/16 07:50 98.5 69 18 104/59 96 11/19/16 07:30 Room Air Intake and Output 11/20/16 11/20/16 11/21/16 15:00 23:00 07:00 Intake Total 1050 ml 1250 ml Balance 1050 ml 1250 ml Exam Free Text/Dictation GENERAL: No acute distress. Comfortable, pleasant. HEENT: Pupils equal, reactive. No scleral icterus. Mucous membranes are moist. NECK: Supple. No JVD. No crepitus. PULMONARY: Normal respiratory effort. No wheezing. CARDIAC: S1, S2 present. ABDOMEN: Soft, minimally tender in epigastric region. No rebound, no guarding , not rigid. EXTREMITIES: No edema. VASCULAR: Capillary refill is less than 2 seconds. NEUROLOGIC: Alert, oriented, moves all 4 extremities grossly. Results Result Diagram: 11/21/16 0505 11/21/16 0505 GAGAN REYES MD Nov 21, 2016 17:04
--- NOTE | 2016-11-21 17:05 | PN ---
Date/Time of Note Date/Time of Note DATE: 11/21/16 TIME: 17:04 Assessment/Plan Lines/Catheters IV [facility] Type (from [facility]): Peripheral IV Assessment/Plan Chief Complaint/Hosp Course 1. Abdominal pain secondary to pancreatitis secondary to gallstones. Improved. -Continue judicious fluid management and supportive care. -Lap astrid today 2. Leukocytosis secondary to systemic inflammatory response syndrome. Resolved 3. Transaminitis. Possibly secondary to passed stone. Continue close monitoring and treatment as above. May benefit from intraoperative cholangiogram. Improved 4. Dyslipidemia. Recommend medical optimization and nutrition optimization. 5. History of gastritis. Continue PPI and encourage nutrition and lifestyle optimization. 6. Small hiatal hernia. Will monitor. 7. Fatty liver. Encouraged diet optimization. Consider liver biopsy if proceeds with cholecystectomy. Thank you Problems: Subjective 24 Hr Interval Summary Pain improving. No f/c. No n/v. No cp/sob. No cough. No salmeron/dizzy/visual or neuro changes. No dysuria. Bowel function. Exam/Review of Systems Vital Signs Vitals Vital Signs Date Time Temp Pulse Resp B/P Pulse Ox O2 Delivery O2 Flow Rate FiO2 11/21/16 07:50 98.5 69 18 104/59 96 11/19/16 07:30 Room Air Intake and Output 11/20/16 11/20/16 11/21/16 15:00 23:00 07:00 Intake Total 1050 ml 1250 ml Balance 1050 ml 1250 ml Exam Free Text/Dictation GENERAL: No acute distress. Comfortable, pleasant. HEENT: Pupils equal, reactive. No scleral icterus. Mucous membranes are moist. NECK: Supple. No JVD. No crepitus. PULMONARY: Normal respiratory effort. No wheezing. CARDIAC: S1, S2 present. ABDOMEN: Soft, minimally tender in epigastric region. No rebound, no guarding , not rigid. EXTREMITIES: No edema. VASCULAR: Capillary refill is less than 2 seconds. NEUROLOGIC: Alert, oriented, moves all 4 extremities grossly. Results Result Diagram: 11/21/16 0505 11/21/16 0505 GAGAN REYES MD Nov 21, 2016 17:05
[2016-11-21] MEDS ORDERED: ROCURONIUM 50 MG INJ ONE (17:33)
[2016-11-21] MEDS ORDERED: CEFAZOLIN 1 GM INJ ONE (17:33)
[2016-11-21] MEDS ORDERED: LIDOCAINE 2% (SDV) 5 ML INJ ONE (17:35)
[2016-11-21] MEDS ORDERED: FENTAnyl 50 MCG/ML VIAL ONE (17:35)
[2016-11-21] MEDS ORDERED: MIDAZOLAM 1 MG/ML 2 ML INJ ONE (17:35)
[2016-11-21] MEDS ORDERED: SUCCINYLCHOLINE CHLORIDE 100 MG/5 ML SYG IV ONE (17:35)
[2016-11-21] MEDS ORDERED: PROPOFOL 20 ML ONE (17:35)
[2016-11-21] MEDS ORDERED: ONDANSETRON 4 MG INJ ONE (17:36)
[2016-11-21] MEDS ORDERED: METOCLOPRAMIDE 10 MG INJ ONE (17:36)
[2016-11-21] MEDS ORDERED: DEXAMETHASONE 4 MG/ML 1 ML INJ ONE (17:37)
[2016-11-21] MEDS ORDERED: PHENYLephrine (100 MCG/ML) 5ML SYG ONE (17:44)
[2016-11-21] MEDS ORDERED: metroNIDAZOLE 500 MG/NS (PMX) 100 ML IVPB ONE (17:50)
[2016-11-21] MEDS ORDERED: IOHEXOL 300MG/ML 30 ML BTL ONE (18:06)
[2016-11-21] MEDS ORDERED: NEOSTIGMINE 3 MG/3 ML SYRINGE ONE (18:24)
[2016-11-21] MEDS ORDERED: GLYCOPYRROLATE 0.4 MG INJ ONE (18:24)
[2016-11-21] MEDS ORDERED: DIPHENHYDRAMINE 50 MG INJ IV PRN (18:30)
[2016-11-21] MEDS ORDERED: ONDANSETRON 4 MG INJ IV PRN (18:30)
[2016-11-21] MEDS ORDERED: MEPERIDINE 25 MG INJ IV PRN (18:30)
[2016-11-21] MEDS ORDERED: hydrALAzine 20 MG INJ IV PRN (18:30)
[2016-11-21] MEDS ORDERED: FENTAnyl 50 MCG/ML VIAL IV PRN (18:30)
[2016-11-21] MEDS ORDERED: HYDROmorphONE (0.2 MG/ML) 10ML SYG IV PRN ×2 (18:30)
[2016-11-21] MEDS ORDERED: PROCHLORPERAZINE 10 MG INJ IV PRN (18:30)
[2016-11-21] MEDS ORDERED: OXYCODONE/ACETAMINOPHEN (5/325) TAB PO PRN ×2 (18:30)
[2016-11-21] MEDS ORDERED: LABETALOL HCL 20MG INJ IV PRN (18:30)
--- NOTE | 2016-11-21 18:50 | OPR ---
Date/Time of Note Date/Time of Note DATE: 11/21/16 TIME: 18:46 Operative Report Procedure Date: Nov 21, 2016 Procedure Description Preoperative Diagnosis: 1. Gallstone pancreatitis 2. Transaminitis Postoperative Diagnosis: 1. Gallstone pancreatitis 2. Transaminitis 3. Abnormal liver color Operation(s) Performed: 1. 3 port laparoscopic cholecystectomy 2. Laparoscopic liver wedge resection biopsy 3. Laparoscopic intraoperative cholangiogram 4. [place] anesthetic [place], [id number] 5. Laparoscopic guided transversus abdominis plane block, bilateral Surgeon: GAGAN REYES MD Anesthesia: general, local, & regional Anesthesiologist: MD Jordan Estimated Blood Loss: 40 ml's Specimens: Liver Gallbladder Tubes/Drains: None Complications: None Pt Condition Post Procedure: stable Disposition: PACU Indications: 61-year-old male with gallstones, pancreatitis, and abdominal pain here for cholecystectomy. Risks include but are not limited to bleeding, infection, abscess, seroma, damage to intestines, damage to the liver, damage to biliary tree, hernia formation, chronic pain, biloma, need for reoperations or further surgeries, VA , stroke, PE, DVT, pneumonia, organ failures, or even . Procedure Description: Patient was brought and placed supine on the operating table SCDs were placed, preoperative antibiotics were administered, all pressure points were well-padded , and after induction of anesthesia patient was prepped and draped in usual sterile fashion and timeout was performed. Incision was made in the supraumbilical region, Veress was safely inserted, and after a negative SIP test , abdomen was insufflated to 15mmHg. Veress was removed and 5mm port was safely inserted. Laparoscopy was performed with a 5 mm 30 scope. No injuries were identified. The liver looks somewhat abnormal color. Gallbladder is without evidence of infection. 12 mm port is placed in subxiphoid under direct visualization followed by another 5 mm port in the right upper quadrant. All port sites were injected with quarter percent Marcaine with epi and 1% lidocaine prior to any incisions. Bilateral transversus abdominis plane block was performed under laparoscopic visualization to aid with pain control intra-and postoperatively. Patient was placed in reverse Trendelenburg and right side up on gallbladder was retracted superolaterally. Using electrocautery and blunt dissection I was able to identify the cystic artery and cystic duct. The duct was slightly dilated but tapered into the gallbladder. Full critical angle view was identified. Cystotomy was created and cholangiogram catheter inserted. Cholangiography was performed with contrast filling the hepatic ducts common bile duct and the bowel without any filling defects. Catheter was removed. Both structures were clipped twice proximally and once distally and transected. The gallbladder was taken off the liver with electrocautery. Hemostasis was obtained. Gallbladder was placed in an Endo Catch bag and removed through the subxiphoid port site. There was complete hemostasis. Due to the abnormality of the liver decision was made to perform liver wedge resection which was done with electrocautery and scissor with complete hemostasis right after. The specimen was sent to pathology for further evaluation. 12 mm made port site fascia was closed with Endo Close of an 0 Vicryl in a [place]mukni manner. Ports and CO2 were removed under direct visualization. Next complete hemostasis. Wounds were thoroughly irrigated skin was closed with 4-0 Monocryl in subcuticular fashion. Dermabond was applied. Patient was extubated and transferred to recovery room in stable condition and all counts were correct and the end of the operation 2. GAGAN REYES MD Nov 21, 2016 18:50
[2016-11-21] MEDS ORDERED: HYDROCODONE/APAP (5/325) TAB PO PRN (19:00)
--- NOTE | 2016-11-21 19:21 | RADRPT ---
PROCEDURE: Intraoperative cholangiogram. CLINICAL INDICATION: Abdominal pain TECHNIQUE: 3 views of the abdomen were obtained for an intraoperative cholangiogram. COMPARISON: None. FINDINGS: Normal caliber of the common bile duct and pancreatic duct is seen. No definite filling defect in th e visualized common bile duct and pancreatic duct is seen. Opacification is also seen of the duoden um. The transverse colon is gas distended. There are no abnormal calcifications overlying the urin janak tracts. The osseous structures are unremarkable. IMPRESSION: Normal caliber of the common bile duct and pancreatic duct without definite evidence of a filling de fect. RPTAT: HPNM Physician Gini Date Time Electronically viewed and signed by Physician Gini on 11/21/2016 19:21 /
[2016-11-22] MEDS: ACETAMINOPHEN 325 MG TAB PO PRN ×2 (06:04→13:09)
[2016-11-22] MEDS: DEXTROSE 5%-0.45% NACL 1,000 ML IV SCH (06:04)
[2016-11-22] MEDS: PANTOPRAZOLE 40 MG INJ IV SCH (06:04)
[2016-11-22 06:25] LABS: ADD SCAN DIFF NO
[2016-11-22 06:28] LABS: BASOPHILS % 0.1 % (0.0-2.0); HEMATOCRIT 39.8 % (42.0-52.0); HEMOGLOBIN 14.1 g/dl (14.0-18.0); LYMPHOCYTES # 0.7 10^3/ul (0.8-2.9); LYMPHOCYTES % 6.8 % (15.0-51.0); MEAN CORPUSCULAR HEMOGLOBIN 31.5 pg (29.0-33.0); MEAN CORPUSCULAR HGB CONC 35.4 g/dl (32.0-37.0); MEAN PLATELET VOLUME 10.2 fl (7.4-10.4); MONOCYTE # 0.4 10^3/ul (0.3-0.9); MONOCYTES % 4.3 % (0.0-11.0); NEUTROPHIL # 9.1 10^3/ul (1.6-7.5); NEUTROPHILS % 88.5 % (39.0-77.0); PLATELET COUNT 309 10^3/UL (140-415); RED BLOOD COUNT 4.47 10^6/ul (4.70-6.10); RED CELL DISTRIBUTION WIDTH 11.1 % (11.5-14.5); WHITE BLOOD COUNT 10.3 10^3/ul (4.8-10.8)
[2016-11-22 06:51] LABS: ALBUMIN 3.6 g/dl (3.3-4.9)
[2016-11-22 06:52] LABS: POTASSIUM 3.8 mmol/L (3.5-5.1)
[2016-11-22 06:54] LABS: ALBUMIN/GLOBULIN RATIO 1.05; BILIRUBIN,INDIRECT 0.3 mg/dl (0-1.1); BILIRUBIN,TOTAL 0.3 mg/dl (0.2-1.3); CREATININE 0.63 mg/dl (0.61-1.24)
[2016-11-22 07:41] VITALS: BP 154/83; RESP 18
--- NOTE | 2016-11-22 11:20 | CONS ---
Date/Time of Note Date/Time of Note DATE: 11/22/16 TIME: 11:19 Assessment/Plan Assessment/Plan Additional Assessment/Plan Additional Assessment/Plan IMPRESSION: 1. Biliary pancreatitis. 2. Lipid abnormality. 2. Mild leukocytosis. 4.gallstone,s/p cholecystectomy 5.fatty liver Plan case discussed with Dr Blanc,operative cholangiogram negative. continue present care monitor liver function Consultation Date/Type/Reason Admit Date/Time Nov 18, 2016 at 17:27 24 HR Interval Summary Constitutional: improved Exam/Review of Systems Vital Signs Vitals Vital Signs Date Time Temp Pulse Resp B/P Pulse Ox O2 Delivery O2 Flow Rate FiO2 11/22/16 07:41 97.6 73 18 154/83 97 11/21/16 19:33 Room Air Intake and Output 11/21/16 11/21/16 11/22/16 14:59 22:59 06:59 Intake Total 800 ml 1500 ml Output Total 40 ml 300 ml Balance 760 ml 1200 ml Exam Constitutional: alert, oriented, well developed Psych: nl mood/affect, no complaints Head: atraumatic, normocephalic Eyes: EOMI, PERRL, nl conjunctiva, nl lids, nl sclera ENMT: nl external ears & nose, nl lips & teeth, nl nasal mucosa & septum Neck: non-tender, supple Respiratory: clear to auscultation, normal air movement Cardiovascular: nl pulses, regular rate and rhythm Gastrointestinal: nl liver, spleen, non-tender, soft Musculoskeletal: nl extremities to inspection, nl gait and stance Extremities: normal pulses 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8 L Hemoglobin 14.1 Indirect Bilirubin 0.3 Lymphocytes # 0.7 L Lymphocytes % 6.8 L Mean Corpuscular Hemoglobin 31.5 Mean Corpuscular Hemoglobin Concent 35.4 Mean Corpuscular Volume 89.0 Mean Platelet Volume 10.2 Monocytes # 0.4 Monocytes % 4.3 Neutrophils # 9.1 H Neutrophils % 88.5 H Nucleated Red Blood Cells # 0.0 Nucleated Red Blood Cells % 0.0 Platelet Count 309 # Potassium Level 3.8 Red Blood Count 4.47 L Red Cell Distribution Width 11.1 L Sodium Level 141 Total Bilirubin 0.3 Total Protein 7.0 White Blood Count 10.3 Medications Medications Current Medications Dextrose/Sodium Chloride (D5-1/2ns) 1,000 ml @ 125 mls/hr Q8H IV Last administered on 11/22/16 06:04; Admin Dose 125 MLS/HR; Start 11/18/16 at 17:39 Ondansetron HCl (Zofran Inj) 4 mg Q6H PRN IV NAUSEA AND/OR VOMITING; Start at 18:00 Acetaminophen (Tylenol Tab) 650 mg Q6H PRN PO PAIN LEVEL 1-3 OR FEVER Last administered on 11/22/16 06:04; Admin Dose 650 MG; Start 11/18/16 at 18:00 Morphine Sulfate (morphine) 2 mg Q4H PRN IV SEVERE PAIN LEVEL 7-10; Start 11/18 at 18:00 Docusate Sodium (Colace) 100 mg Q12H PRN PO CONSTIPATION; Start 11/18/16 at 18: 00 Magnesium Hydroxide (Milk Of Mag) 30 ml DAILY PRN PO CONSTIPATION; Start at 18:00 Pantoprazole (Protonix Iv) 40 mg DAILY@06 IV Last administered on 11/22/16 06: 04; Admin Dose 40 MG; Start 11/19/16 at 06:00 Acetaminophen/ Hydrocodone Bitart ([place] (5/325)) 1 tab Q6H PRN PO PAIN LEVEL 4 -6 Last administered on 11/21/16 22:59; Admin Dose 1 TAB; Start 11/21/16 at 19:00 FRANSISCA HERNANDEZ MD Nov 22, 2016 11:20
--- NOTE | 2016-11-22 15:27 | PDOCDIS ---
Discharge Instructions CONDITION Patient Condition: Good HOME CARE INSTRUCTIONS: Diet Instructions: Low Fat /CholesterolSpecial Diet: Clear liquid ACTIVITY: Activity Restrictions: Slowly Increase Activity FOLLOW UP/APPOINTMENTS Appointments f/u own pcp [address] tidwell 1 wk f/u dr morris 1 wk KIMMIE VIZCAINO MD Nov 22, 2016 15:27
[2016-11-22] MEDS ORDERED: OMEP20CA16 PO (15:29)
[2016-11-22] MEDS ORDERED: TRAM-40 PO (15:29)
--- NOTE | 2016-11-22 17:04 | QN ---
Documentation Comment [id number] KIMMIE VIZCAINO MD Nov 22, 2016 17:04
--- NOTE | 2016-11-22 23:08 | PN ---
Date/Time of Note Date/Time of Note DATE: 11/22/16 TIME: 23:01 Assessment/Plan Lines/Catheters IV C[facility]ter Type (from [facility]): Peripheral IV Assessment/Plan Chief Complaint/Hosp Course 1. Abdominal pain secondary to pancreatitis secondary to gallstones s/p 3 port lap astrid, liver bx, ioc 11/21 - 2. Leukocytosis secondary to systemic inflammatory response syndrome. Resolved 3. Transaminitis. Possibly secondary to passed stone. Continue close monitoring and treatment as above. May benefit from intraoperative cholangiogram. Improved 4. Dyslipidemia. Recommend medical optimization and nutrition optimization. 5. History of gastritis. Continue PPI and encourage nutrition and lifestyle optimization. 6. Small hiatal hernia. Will monitor. 7. Fatty liver. Encouraged diet optimization. Consider liver biopsy if proceeds with cholecystectomy. Thank you Late entry Problems: Subjective 24 Hr Interval Summary s/p 3 port lap astrid, liver bx, io 11/21. Pain resolved. No f/c. No n/v. No cp /sob. No cough. No salmeron/dizzy/visual or neuro changes. No dysuria. Bowel function. Exam/Review of Systems Vital Signs Vitals Vital Signs Date Time Temp Pulse Resp B/P Pulse Ox O2 Delivery O2 Flow Rate FiO2 11/22/16 07:41 97.6 73 18 154/83 97 11/21/16 19:33 Room Air Intake and Output 11/21/16 11/21/16 11/22/16 15:00 23:00 07:00 Intake Total 800 ml 1500 ml Output Total 40 ml 300 ml Balance 760 ml 1200 ml Exam Free Text/Dictation GENERAL: No acute distress. Comfortable, pleasant. HEENT: Pupils equal, reactive. No scleral icterus. Mucous membranes are moist. NECK: Supple. No JVD. No crepitus. PULMONARY: Normal respiratory effort. No wheezing. CARDIAC: S1, S2 present. ABDOMEN: Soft, minimally tender in epigastric region. No rebound, no guarding , not rigid. EXTREMITIES: No edema. VASCULAR: Capillary refill is less than 2 seconds. NEUROLOGIC: Alert, oriented, moves all 4 extremities grossly. Results Result Diagram: 11/22/16 0543 11/22/16 0543 GAGAN REYES MD Nov 22, 2016 23:08
--- NOTE | 2016-11-24 19:14 | DS ---
DATE OF ADMISSION: 11/18/2016 DATE OF DISCHARGE: 11/22/2016 HOSPITAL COURSE: The patient is a 61-year-old male who presented with a gallstone pancreatitis, elevated lipase was seen by Dr. Hurley in consultation. The patient was also seen by Dr. Bob Bryant in consultation. MRI shows multiple tiny gallstones laying in the gallbladder, no biliary ductal dilatation , mild inflammatory changes around the pancreas, moderate hiatus hernia and fatty liver. The patient was cleared to be discharged home, but patient underwent laparoscopic liver wedge resection biopsy and cholecystectomy and is stable to be discharged. DISCHARGE DIAGNOSES: 1. Gallstone pancreatitis. 2. Elevated abnormal LFT, lipase and amylase. 3. Laparoscopic cholecystectomy. 4. Obesity. 5. Status post leukocytosis. 6. The patient has liver failure, resolving. DISCHARGE MEDICATIONS: The patient to continue on: 1. Omeprazole. 2. Tramadol. 3. Aspirin. 4. Lipitor. 5. Bentyl. 6. Omeprazole. 7. Tramadol. DIET: Low fat diet, weight losing. DISCHARGE INSTRUCTIONS: The patient to follow up with Dr. Hurley, Dr. Bryant in 1 week and _ PCP as an outpatient. Dictated By: KIMMIE VIZCAINO MD BS/NTS Conf#: [id number] DID#: [id number]
== END 2016-11-22 17:30 | disposition home or self-care (01) | DRG 419 ==
LOC: E/R 10:17 → MS2 17:27
PROVIDERS: ADMIT Internal Medicine Nephrology; ATTEND Internal Medicine Nephrology
PROC: 0FB04ZX Excision of Liver, Percutaneous Endoscopic Approach, Diagnostic (ICD-10-PCS; 2016-11-21)
PROC: BF03YZZ Plain Radiography of Gallbladder and Bile Ducts using Other Contrast (ICD-10-PCS; 2016-11-21)
PROC: 0FT44ZZ Resection of Gallbladder, Percutaneous Endoscopic Approach (ICD-10-PCS; principal; 2016-11-21 18:30)
DX: K85.10 Biliary acute pancreatitis without necrosis or infection (principal); K76.0 Fatty (change of) liver, not elsewhere classified; K72.90 Hepatic failure, unspecified without coma; E78.5 Hyperlipidemia, unspecified; K44.9 Diaphragmatic hernia without obstruction or gangrene
CPT/HCPCS: 36415; 70200; 74176; 74181; 74300; 76705; 80053; 80061; 82150; 83690; 84484; 85025; 88304; 88307; 88313; 93005; 96374; 96375; C9113; J0330; J0690; J0696; J1100; J1170; J1885; J2250; J2270; J2370; J2405; J2543; J2710; J2765; J3010; J7030; J7042; Q9967